=== PATIENT | male | born 1940 | race Caucasian/White ===

== ENCOUNTER 2017-08-14 12:16 | Emergency (ER) | payer MEDICARE, OTHER ==
[~2017-08-14] VITALS: Ht 188 cm; Wt 113.8 kg
[~2017-08-14 12:16] MED LIST: ACET325 PO; ACET500 PO; ALBU.083IS IH; ALBU90OI6 INH; BETA.05TO; CHOL10002 PO; DIGO.25 PO; FAMO20 PO; FLUSAL2505 IH; FOLI1 PO; FURO40 PO; GABA300T24 PO; HYDR1TAB94 PO; KETO15TC TOP; LEVE500 PO; LEVFLO500 PO; MAGOXI400 PO; METO50 PO; METO50ER PO; MIRALAX17 GM PO; Mucinex1200 MG PO; OLME20 PO; OXYC5 PO; POTA8 PO; PRED20 PO; PRED5 PO; QVAR7.3 G1 IH; ROFL500T PO; SALM50IP IH; SAW PALMETTO PO; SENN187 PO; SPIR25 PO; Super B Comple150 MG PO; TAMS.4ER PO; WARF5 PO; WARF7.5 PO
[2017-08-14 13:50] LABS: Calcium, Ionized (POC) 1.09 mmol/L (1.10-1.46); Chloride (POC) 90 mmol/L (98-108); Creatinine (POC) 1.2 mg/dL (0.8-1.3); Glucose (ISTAT POC) 158 mg/dL (70-99); Hemoglobin (POC) 12.6 g/dL (13.5-17.5); Sodium (POC) 135 mmol/L (135-148); Total CO2 (POC) 33 mmol/L (21-32)
== END 2017-08-14 15:45 | disposition home or self-care (01) ==
LOC: ER 12:16
PROVIDERS: Emergency Medicine
DX: S80.01XA Contusion of right knee, initial encounter (principal); M17.11 Unilateral primary osteoarthritis, right knee; Z88.8 Allergy status to other drugs, medicaments and biological substances; Z79.899 Other long term (current) drug therapy; Z79.01 Long term (current) use of anticoagulants; Z79.52 Long term (current) use of systemic steroids; Z79.891 Long term (current) use of opiate analgesic; I10 Essential (primary) hypertension; I48.91 Unspecified atrial fibrillation; Z87.891 Personal history of nicotine dependence; W19.XXXA Unspecified fall, initial encounter
CPT/HCPCS: 36415; 73562-RT; 80047; 85014; 99283